=== PATIENT | male | born 1965 | race Caucasian/White ===

== ENCOUNTER 2024-10-01 03:55 | Emergency (ER) | payer BC, SELFPAY ==
[2024-10-01] VITALS (11 sets, daily range): BP systolic 131–150; BP diastolic 77–109; BMI 36.5
--- NOTE | 2024-10-01 04:22 | ED.GENMED ---
History of Present Illness
General
Chief Complaint: Heart Rate Problem
Source: patient
Exam Limitations: none
Time Seen by Provider: 10/01/24 04:13
Nursing documentation reviewed up to this point in time: agreed with
History of Present Illness
History of Present Illness:
This is a 59-year-old gentleman with history of hypertension, plaque psoriasis. He also has history of sarcoma with excision and XRT 2021. No history of recurrence.
He awoke tonight with complaints of palpitations feeling that his heart was beating rapidly. No other associated symptoms. He denies chest pain, no dizziness nor lightheadedness, no coughing or shortness of breath. No history of similar episodes
in the past.
He does admit to several alcoholic drinks last night but denies frequent nor even significant social alcohol use. He denies drug use.
No recent travel, he denies leg pain or swelling.
His only daily medications are valsartan hand and more recently he began Tremfya 1 month ago for plaque psoriasis.
Past History
Past History
ED Past Medical History: Cancer (Sarcoma status post excision and local XRT 2021), HTN and Other (Plaque psoriasis)
ED Past Surgical History: Tonsilectomy and Other (Sarcoma excision-left lateral thigh 2021)
Social History
Tobacco: Non-smoker
Alcohol: Occasional
Drug: None
Personal:
Living: with family
Employment: Employed
Family History
Family History: Other (Noncontributory)
Phy Exam
Physical Exam
Physical Exam:
GENERAL: 59-year-old gentleman appears his stated age, bright and alert, pleasant and easily communicative, appears in no acute distress. is accompanying.
EYE: pupils equal and reactive
NECK: Supple, no significant adenopathy.
ENT: o/p clr, mmm.
CARDIAC: Irregularly irregular, tachycardic
LUNGS: Clear breath sounds bilaterally, no acute respiratory distress,
ABDOMEN: Soft, without focal tenderness, no r/g, no cvat
NEUROLOGICAL: Alert and oriented, no focal neuro deficits
SKIN: Warm and dry, skin intact. Plaque psoriasis bilateral anterior lower legs.
MUSCULOSKELETAL: No edema, well perfused.
PSYCH: Normal and appropriate interaction.
Scores
[id number] Score for Afib Stroke Risk
Age in Years (65=0, 65-74=1, >/=75=2): <65
Sex (Female=+1): Male
Congestive Heart Failure History (Yes=+1): No
Hypertension History (Yes=+1): Yes
Stroke/TIA/Thromboembolism History (Yes=+2): No
Vascular Disease History (Yes=+1): No
Diabetes Mellitus (Yes=+1): No
Score: 1
Anticoagulation Recommendations: Consider anticoagulation (as validated in nonvalvular fib)
Course
Orders/Labs/Results
Orders:
Orders
10/01/24 03:56
ECG [Electrocardiogram (*1)] Urgent
Reason for Study: Tachycardia
10/01/24 03:57
EKG- Treatment ONCE
10/01/24 04:22
Diltiazem 125 mg/125 ml Nss [Cardizem] 125 mg in 125 ml IV NOW
Initial dose in mg/hr, then titrate:: 5
Titrate to keep:: Heart rate 80-100 bpm
Titrate by mg/hr:: 5 mg/hr
Frequency of titrations (minutes):: 15
Maximum dose in mg/hr:: 15
Diltiazem HCl [Cardizem] 20 mg IV NOW STA
10/01/24 04:25
Complete Blood Count/With Diff Urgent
Comprehensive Metabolic Panel Urgent
Magnesium Urgent
TSH Reflex To Free T4 Urgent
10/01/24 05:45
Propofol [Diprivan] 20 ml .ROUTE .STK-MED
10/01/24 06:08
Electrocardiogram (*1) Urgent
Reason for Study: Atrial Fibrillation
Other Reason for Exam: cardioversion
10/01/24 06:09
EKG- Treatment ONCE
Abnormal Lab Results
10/01/24
04:25
MPV 11.3 H fL
(7.4-10.4)
Absolute Monos (auto) 0.8 H 10^3/uL
(0.1-0.6)
Monocytes % 10.2 H %
(1.7-9.3)
Glucose 105 H mg/dl
(70-99)
ALT 65 H U/L
(0-50)
10/01/24 04:25
10/01/24 04:25
Vital Signs
Initial and Last Documented VS:
Initial Vital Signs
Temp Pulse Resp BP Pulse Ox
98.1 F 148 24 146/94 98
10/01/24 04:07 10/01/24 04:07 10/01/24 04:07 10/01/24 04:07 10/01/24 04:07
Last Documented Vital Signs
Temp Pulse Resp BP Pulse Ox
98.1 F 115 20 143/108 99
10/01/24 06:07 10/01/24 06:07 10/01/24 06:07 10/01/24 06:07 10/01/24 06:07
Procedures
Cardioversion
Indication:: Afib
Performed by:: myself
Energy Used: 200 joules
Number of attempts: 1
Successful?: Yes
Complications: None
ASA Risk Score: Class II
Any reaction or bad outcome to prior sedation/anesthesia?: No history of a reaction
Sedation level to be attained: moderate
Chart and allergies reviewed: Yes
Patient reassessed prior to sedation: Yes
Time out completed at (validating right patient & procedure): 06:05
History of difficult intubation: No
Airway free of obstruction: Yes
Patient has a gag reflex: Yes
Patient is able to open mouth: Yes
Patient has no dentures: Yes
Patient has no loose teeth: Yes
Medication administered by Provider during Moderate Sedation: IV Propofol (mg)
Total dose administered: 100
Time drug administered: 06:06
Start Time: 06:06
Stop Time: 06:16
MDM/Problems Addressed
Differential Diagnosis Includes:
59-year-old gentleman presents with acute palpitations, no other significant associated symptoms.
EKG shows atrial fibrillation with rapid ventricular response. No evidence of ischemia on EKG.
Hemodynamically stable.
Will initiate IV Cardizem bolus and drip for rate control.
Will check routine labs assess for potential electrolyte abnormality, thyroid dysfunction.
Patient recently began Tremfya but according to my research no report of adverse cardiac arrhythmia or related to this medication.
Admits to a few alcoholic drinks last night but denies significant nor even frequent alcohol consumption.
Chronic conditions affecting care: HTN and Immunosuppressed
*Pulse Oximetry
Patient hypoxic: no
*EKG
Interpreted by ED Provider?: Yes
Interpretation: abnormal
Comparison EKG: no comparison EKG present
Rate: tachycardiac
Rhythm: a-fib
Thomas: left axis deviation
Interval: normal QT interval
QRS Pattern: normal QRS and left vent hypertrophy
Ischemia: no ischemia
*Flask Carrier Interpretation
Rate: tachycardiac
Interpretation: abnormal
Rhythm: a-fib
*Critical Care Note
Total Time (30-74mins, 75-104mins- exclusive of procedures): 40
comment:
Critical care statement: A total of 40 minutes of critical care time was provided for this patient. This includes management of unstable vital signs, evaluation of the patient at bedside, reviewing the patient's pertinent medical records, discussion
with consultants, review of old EKGs and review of pertinent medical records. This time with separate from time utilized to perform the aforementioned documented procedures
Update Note
Update Note:
06:00
With IV Cardizem ventricular response has improved to around 100 and patient reports no further palpitations but remains in atrial fibrillation.
Labs are unremarkable.
He remains hemodynamically stable.
Normal TSH.
Will plan for electrical cardioversion. Patient agreeable.
Patient successfully cardioverted with 1 synchronized shock, 200 J.
He remains in normal sinus rhythm.
Remains hemodynamically stable.
He is now awake and alert, offers no complaints.
[id number] score of 1.
Will plan to discharge to home with 1 month course of Eliquis and plan for follow-up with cardiology for further evaluation.
ED Attending Note
-
Portions of this chart may have been created with voice recognition software.� Occasional wrong word or��sound alike� substitutions may have occurred due to the inherent limitations of voice recognition software.
Discharge Plan
Departure
Patient Disposition: Home (Routine Discharge)
Date of Disposition: 10/01/24
Time of Disposition: 07:00
Patient with high blood pressure during this ER visit?: No
Condition: Good
Discharge Problem:
New onset A-fib with rapid ventricular r
Instructions: Atrial Fibrillation (DC), MODERATE SEDATION ADULT
Prescriptions:
New
Eliquis 5 mg tablet
5 mg PO BID Qty: 60 0RF
No Action
valsartan 80 mg Tablet
80 mg PO DAILY
Tremfya 100 mg/mL Auto-Injector
100 mg SC Q8W
Referrals:
Rolando Bolton MD [Family Provider] -
Kareem Roy MD [Active] - Call in 1-3 days for appt
Interventions
Interventions:
*Risk Screen - Suicide Last Done: 10/01/24 04:07
*General Assessment Last Done: 10/01/24 04:15
*Neglect/Abuse Screening Last Done: 10/01/24 04:07
*ED- Fall Risk Assessment Last Done: 10/01/24 04:15
*ED COVID-19 Vaccine History Last Done: 10/01/24 04:15
ED- Cardiac Assessment Last Done: 10/01/24 04:35
ED- Pulmonary Assessment Last Done: 10/01/24 04:35
Discharge Date and Time
Print Language: SPANISH
[2024-10-01] MEDS: CARDIZEM 20 MG IV (04:29)
[2024-10-01] MEDS: CARDIZEM 125 IV (04:30)
[2024-10-01 04:36] LABS: % Basophils 0.6 % (0-2); % Eosinophils 1.7 % (0-6); % Immature Granulocytes 0.5 % (0-0.5); % Lymphocytes 39.5 % (20.5-51.1); % Monocytes 10.2 % (1.7-9.3); % Neutrophils 47.5 % (42.2-75.2); Absolute Basophils 0.1 10^3/uL (0-0.2); Absolute Eosinophils 0.1 10^3/uL (0-0.7); Absolute Lymphocytes 3.2 10^3/uL (1.2-3.4); Absolute Monocytes 0.8 10^3/uL (0.1-0.6); Absolute Neutrophils 3.9 10^3/uL (1.4-6.5); Hematocrit 49.9 % (39.0-52.0); Hemoglobin 17.2 g/dL (13.0-18.0); Mean Corp Hgb Conc. 34.5 g/dL (33.0-37.0); Mean Corpuscular Hgb 30.4 pg (27.0-31.0); Mean Corpuscular Volume 88.3 fL (80.0-94.0); Mean Platelet Volume 11.3 fL (7.4-10.4); Nucleated Red Blood Cells % 0 % (-); Platelet Count 198 10^3/uL (130-400); Red Blood Cell Count 5.65 10^6/uL (4.70-6.10); Red Cell Dist. Width 12.7 % (11.5-14.5); White Blood Cell Count 8.2 10^3/uL (4.8-10.8)
[2024-10-01 05:00] LABS: ALT (SGPT) 65 U/L (0-50); AST (SGOT) 39 U/L (17-59); Albumin 4.6 g/dl (3.5-5.0); Alkaline Phosphatase 70 U/L (38-126); Blood Urea Nitrogen 16 mg/dl (9-20); Calcium 9.7 mg/dl (8.4-10.2); Carbon Dioxide 30 mmol/L (22-30); Chloride 107 mmol/L (98-107); Estimated Creatinine Clearance 99 ml/min; Glucose 105 mg/dl (70-99); Magnesium 2.1 mg/dl (1.6-2.3); Potassium 3.8 mmol/L (3.5-5.1); Sodium 144 mmol/L (135-145); Total Bilirubin 0.4 mg/dl (0.2-1.3); Total Protein 7.7 g/dl (6.3-8.2); eGFR > 60.00
[2024-10-01 05:16] LABS: TSH Reflex To Free T4 2.16 uIU/ml (0.47-4.68)
== END 2024-10-01 06:57 | disposition home or self-care (01) ==
LOC: EMR 03:55
PROVIDERS: EMERGENCY PHYSICIAN Emergency Medicine; FAMILY PHYSICIAN Family Medicine
DX: I48.91 Unspecified atrial fibrillation (principal); I10 Essential (primary) hypertension; Z85.89 Personal history of malignant neoplasm of other organs and systems
CPT/HCPCS: 92960; 99152; 96374; 99291; 80053; 83735; 84443; 85025; 93005

== ENCOUNTER → 2024-11-22 07:14 | Outpatient (REF) | payer BC, SELFPAY | LOC: HWRCS 07:14 | PROVIDERS: ATTENDING PHYSICIAN Internal Medicine Cardiovascular Disease; FAMILY PHYSICIAN Family Medicine | DX: I48.0 Paroxysmal atrial fibrillation (principal) | CPT/HCPCS: 93306 ==

== ENCOUNTER → 2024-11-29 08:14 | Outpatient (REF) | payer SELFPAY | LOC: HWRAD 08:14 | PROVIDERS: ATTENDING PHYSICIAN Internal Medicine Cardiovascular Disease; FAMILY PHYSICIAN Family Medicine | DX: I48.0 Paroxysmal atrial fibrillation (principal) | CPT/HCPCS: 75571 ==